=== PATIENT | male | born 1945 | race Two or more races ===

== ENCOUNTER 2021-02-15 10:13 | Emergency (ER) | payer OTHER, MEDICAID ==
[~2021-02-15] VITALS: Ht 167.6 cm; Wt 82.6 kg
[2021-02-15 14:25] LABS: Basophils # (auto) 0 10 ^3/uL (0-0.2); Basophils % (auto) 0.2 % (0.0-2.0); Eosinophils # (auto) 0 10 ^3/uL (0-0.8); Hematocrit 40.7 % (41.0-53.0); Hemoglobin 14.3 g/dL (13.5-17.5); Lymphocytes # (auto) 0.9 10 ^3/uL (0.4-5.4); Lymphocytes % (auto) 5.9 % (10.0-50.0); Mean Corpuscular Hemoglobin 31.2 pg (28.0-32.0); Mean Corpuscular Hgb Conc. 35.2 g/dL (32.0-36.0); Mean Corpuscular Volume 88.7 fL (80.0-100.0); Monocytes % (auto) 6.5 % (0.0-12.0); Neutrophils # (auto) 13.3 10 ^3/uL (1.6-8.6); Neutrophils % (auto) 87.4 % (37.0-80.0); Red Blood Cells 4.59 10^6/uL (4.5-5.90); Red Cell Distribution Width 14.4 % (11.8-14.3); White Blood Cell 15.3 10^3/uL (4.4-10.8)
[2021-02-15 14:44] LABS: Albumin 3.4 g/dL (3.4-5.0); Calcium 8.6 mg/dL (8.5-10.1); Potassium 3.7 mmol/L (3.5-5.1)
[2021-02-15 14:54] LABS: BUN/Creatinine Ratio 21.2; Total Protein 7.8 g/dL (6.4-8.2)
[2021-02-15] MEDS ORDERED: levoFLOXacin 500 MG TAB PO ONE (15:15)
[2021-02-15] MEDS ORDERED: CLINDAMYCIN 600 MG/4 ML VL IM ONE (15:15)
[2021-02-15] MEDS ORDERED: LIDOCAINE 2% JELLY 11ml (GLYDO) ONE (15:28)
[2021-02-15] MEDS ORDERED: LIDOCAINE 2% JELLY 11ml (GLYDO) UR ONE (15:45)
[2021-02-15 15:51] VITALS: BP 135/85
== END 2021-02-15 15:52 | disposition home or self-care (01) ==
LOC: ER 10:13
DX: L03.116 Cellulitis of left lower limb (principal); I10 Essential (primary) hypertension
CPT/HCPCS: 36415; 80053; 85025; 93971; 96372

== ENCOUNTER 2021-02-18 09:05 | Emergency (ER) | payer OTHER, MEDICAID ==
[~2021-02-18] VITALS: Ht 170.2 cm; Wt 82.6 kg
[2021-02-18 10:56] VITALS: BP 125/68
== END 2021-02-18 12:19 | disposition home or self-care (01) ==
LOC: ER 09:05
DX: T83.031A Leakage of indwelling urethral catheter, initial encounter (principal); I10 Essential (primary) hypertension; Z88.0 Allergy status to penicillin
CPT/HCPCS: 51702

== ENCOUNTER 2021-02-24 10:55 | Emergency (ER) | payer OTHER, MEDICAID ==
[~2021-02-24] VITALS: Ht 170.2 cm; Wt 82.1 kg
[2021-02-24 13:42] VITALS: BP 125/55
== END 2021-02-24 13:49 | disposition home or self-care (01) ==
LOC: ER 10:55
DX: R33.9 Retention of urine, unspecified (principal); I10 Essential (primary) hypertension; Z46.6 Encounter for fitting and adjustment of urinary device; Z88.0 Allergy status to penicillin
CPT/HCPCS: 81002

== ENCOUNTER 2021-02-28 21:09 | Emergency (ER) | payer OTHER, MEDICAID ==
[~2021-02-28] VITALS: Ht 170.2 cm; Wt 77.6 kg
[2021-03-01 01:00] VITALS: BP 115/51
[2021-03-01] MEDS ORDERED: TETANUS-DIPTH-ACEL PERTUSSIS 0.5ML SYR Tdap IM ONE (01:15)
== END 2021-03-01 02:25 | disposition home or self-care (01) ==
LOC: ER 21:10
DX: S41.151A Open bite of right upper arm, initial encounter (principal); S50.811A Abrasion of right forearm, initial encounter; L03.116 Cellulitis of left lower limb; E11.9 Type 2 diabetes mellitus without complications; I10 Essential (primary) hypertension; Z88.0 Allergy status to penicillin; W54.0XXA Bitten by dog, initial encounter; Y93.89 Activity, other specified; Y92.89 Other specified places as the place of occurrence of the external cause; Y99.8 Other external cause status
CPT/HCPCS: 73700; 90471; 90715